=== PATIENT | female | born 1985 | race African-American/Black ===

== ENCOUNTER 2017-06-13 08:27 | Emergency (ER) | payer MEDICAID, SELFPAY | END 2017-06-13 10:07 | disposition home or self-care (01) | PROVIDERS: Emergency Provider Emergency Medicine; Family Provider Emergency Medicine; Visit Provider Emergency Medicine | DX: M54.41 Lumbago with sciatica, right side (principal); L60.0 Ingrowing nail; F17.210 Nicotine dependence, cigarettes, uncomplicated; I10 Essential (primary) hypertension | CPT/HCPCS: 72110; 81001; 81025; 87086; 99283 ==

== ENCOUNTER → 2018-08-23 14:37 | Outpatient (CLI) | payer MEDICAID, SELFPAY ==
[2018-08-23 15:05] LABS: Amphetamine/Metha Screen,Urine Negative ng/mL (<1000); Barbiturates Screen,Urine Negative ng/mL (<200); Benzodiazepines Screen,Urine Negative ng/mL (<200); Cannabinoid Screen,Urine Negative ng/mL (<50); Cocaine Screen,Urine Negative ng/mL (<300); Methadone Screen,Urine Negative ng/mL (<300); Opiate Screen,Urine Negative ng/mL (<300); Phencyclidine Screen,Urine Negative ng/mL (<25)
[2018-08-23 15:07] LABS: Alanine Aminotransferase 58 U/L (12-78); Albumin/Globulin Ratio 1.1 (1.1-1.8); Alkaline Phosphatase 93 U/L (46-116); Anion Gap 16.9 mEq/L (5-15); Aspartate Amino Transferase 21 U/L (15-37); Bilirubin,Total 0.3 mg/dL (0.2-1.0); Blood Urea Nitrogen 12 mg/dL (7-18); Calcium 9.3 mg/dL (8.5-10.1); Carbon Dioxide 23 mmol/L (21.0-32.0); Chloride 104 mmol/L (98-107); Chol/HDL Ratio 2.2 (1-3.5); Cholesterol 167 mg/dL (140-200); Estimated Glomerular Filt Rate 74 ml/min (>60); GFR (African American) 89 ML/MIN (>60); Globulin 3.5 gm/dl (1.3-3.2); Glucose 114 mg/dL (74-106); HDL Cholesterol 77 mg/dL (29-89); LDL Cholesterol 72 mg/dL (0-130); Potassium 3.9 mmoL/L (3.5-5.1); Sodium 140 mmol/L (136-145); T4 (Thyroxine) 9.7 ug/dl (4.7-13.3); Thyroid Stimulating Hormone 1.27 uIU/ml (0.358-3.740); Total Protein,Serum 7.5 gm/dL (6.4-8.2); Triglycerides 91 mg/dL (30-200); VLDL Cholesterol 18 mg/dL (0-40)
[2018-08-23 15:34] LABS: Basophils % 0.3 % (0.1-2.0); Eosinophils # 0.2 K/mm3 (0.0-0.4); Hemoglobin 12.8 g/dL (12.2-16.2); Lymphocytes # 2.6 K/mm3 (0.7-4.5); Lymphocytes % 28.2 % (10-50); Mean Corpuscular HGB Conc 31.9 g/dL (31.8-35.4); Mean Corpuscular Volume 87.7 fl (81-99); Mean Platelet Volume 10.7 fl (7.4-10.4); Monocytes # 0.5 K/mm3 (0.1-1.0); Monocytes % 5.5 % (1.7-9.3); Neutrophils % 63.9 % (37.0-80.0); Platelet Count 265 K/mm3 (142-424); Red Blood Count 4.56 M/mm3 (4.20-5.40); White Blood Count 9.4 K/mm3 (4.8-10.8)
[2018-08-26 13:25] LABS: Vitamin D 25 Hydroxy 24.9 ng/mL (30.0-100.0)
== END ==
PROVIDERS: Visit Provider Nurse Practitioner Family
DX: E66.9 Obesity, unspecified (principal)
CPT/HCPCS: 80053; 80061; 80305; 82652; 84436; 84443; 85025

== ENCOUNTER → 2020-01-13 15:15 | Outpatient (CLI) | payer OTHER, SELFPAY ==
[2020-01-14 14:27] LABS: Alanine Aminotransferase 36 U/L (12-78); Albumin Level 4.2 g/dl (3.5-5.0); Albumin/Globulin Ratio 1.4 (1.1-1.8); Alkaline Phosphatase 103 U/L (38-126); Anion Gap 10.7 mEq/L (5-15); Aspartate Amino Transferase 37 U/L (14-36); Bilirubin,Total 0.3 mg/dl (0.2-1.3); Blood Urea Nitrogen 17 mg/dl (7-17); Calcium 9.1 mg/dl (8.4-10.2); Carbon Dioxide 27 mmol/L (22.0-30.0); Chloride 105 mmol/L (98-107); Cholesterol 154 mg/dl (140-200); Estimated Glomerular Filt Rate 97 ml/min (>60); GFR (African American) 117 ML/MIN (>60); Globulin 3.1 g/dL (1.3-3.2); Glucose 100 mg/dl (74-100); HDL Cholesterol 78 mg/dl (40-60); Potassium 4.7 mmoL/L (3.5-5.1); Sodium 138 mmol/L (136-145); Total Protein,Serum 7.3 g/dl (6.3-8.2); Triglycerides 68 mg/dl (30-150); VLDL Cholesterol 14 mg/dL (0-40)
[2020-01-14 14:38] LABS: Direct LDL Cholesterol 65.37 mg/dL (100-129)
[2020-01-14 14:44] LABS: Free T4 (Free Thyroxine) 1.23 ng/dl (0.78-2.19)
[2020-01-14 14:45] LABS: 25-OH Vitamin D, Total 16.9 ng/mL (30-100)
[2020-01-14 14:59] LABS: Thyroid Stimulating Hormone 0.98 uIU/mL (0.465-4.68)
== END ==
PROVIDERS: Visit Provider Emergency Medicine
DX: R68.89 Other general symptoms and signs (principal); E03.9 Hypothyroidism, unspecified; Z13.21 Encounter for screening for nutritional disorder
CPT/HCPCS: 80053; 80061; 82306; 84439; 84443

== ENCOUNTER 2020-05-05 07:49 | Observation (INO) | payer OTHER, SELFPAY ==
[2020-05-05] VITALS (23 sets, daily range): BP systolic 91–149; BP diastolic 50–86; PULSE 57–85; RESP 12–20; TEMP 36.1–43; O2SAT 93–100; BMI 29.7
--- NOTE | 2020-05-05 08:00 | CT_ITS ---
PROCEDURE: CT ABDOMEN PELVIS W CON CLINICAL INDICATION: llq abdominal pain Left lower quadrant pain with diarrhea COMPARISON: No exams were available for comparison TECHNIQUE: IV Contrast: 75ML Isovue 370 Oral Contrast None Axial images obtained with sagittal and coronal reformats. All CT scans at the facility use one or more dose reduction, viz: automated exposure control, ma/kV adjustment per patient size (including targeted exams where dose is matched to indication, i.e. head), or iterative reconstruction technique. FINDINGS: LOWER THORAX: There is a 4 mm noncalcified nodule in the left lower lobe image number 1 incompletely imaged. ABDOMEN & PELVIS: There is a subtle area of slight decreased attenuation in the right hepatic lobe posteriorly measuring approximately 16 by 12 mm. This is indeterminate. The liver is otherwise unremarkable. The gallbladder, spleen, adrenal glands, kidneys, and pancreas have an unremarkable appearance. No evidence of appendicitis. No intestinal obstruction or free air. There is mild thickening of the descending and sigmoid colon possibly due to nondistention. There are bilateral tubal ligation clips. In the left adnexa there is a complex lesion measuring 4 x 2.7 cm. There is central area of decreased attenuation measuring 17 mm. This is felt represent the left ovary. The right ovary appears to be in the posterior adnexal area measuring approximately 4 x 2.4 cm. No significant free fluid. No acute bony findings. IMPRESSION: 1. Left adnexal abnormality which may represent a complex ovarian cyst with thickened wall. Torsion would be included in the differential diagnosis. Suggest pelvic ultrasound for further evaluation 2. Mild thickening of the descending and sigmoid colon which could be due to nondistention versus mild colitis. 3. Indeterminate hepatic lesion. Nonemergent CT or MRI with hemangioma protocol may provide further evaluation. Dictated by: Akira Fitch MD 05/05/2020 09:25 Akira Fitch MD in [place] 05/05/2020 09:25
[2020-05-05 08:06] LABS: Microscopic, Urine URINE MICROSCOPIC (MICROSCOPIC)
[2020-05-05 08:09] LABS: Appearance,Urine CLEAR (Clear); Bilirubin,Urine Negative (Negative); Blood, Urine Negative (Negative); Color,Urine YELLOW (Yellow); Glucose,Urine (UA) Negative (Negative); Ketones,Urine Negative (Negative); Leukocyte Esterase,Urine Negative (Negative); Nitrate,Urine Negative (Negative); Protein,Urine TRACE (Negative); Specific Gravity, Urine >= 1.030 (1.005-1.030); Urobilinogen,Urine 0.2 EU/dl (0.2)
[2020-05-05 08:13] LABS: Urine Pregnancy, HCG Qual. Negative (Negative)
[2020-05-05 08:16] LABS: RBC,Urine Occasional #/hpf (0-3)
--- NOTE | 2020-05-05 08:20 | HMH.EDGENADL ---
ED Disposition Clinical Impression: Pelvic pain, Left ovarian cyst Disposition: Admitted as Observation Condition on Discharge: Fair Instructions: DI for Acute Abdomen Referrals: Dawit Vasquez MD [Primary Care Provider] - - Critical Care Critical Care Time: No Attestation: On 05/05/20, the high probability of a clinically significant, sudden or life threatening deterioration of the following system(s) required my full and direct attention, intervention and personal management. The time I documented below is in addition to time spent performing reported procedures but includes the following listed in this critical care notation. Medical Decision Making - Medical Records Medical records reviewed: Yes: I reviewed the patient's medical records. - Cassius Inquiry Pt receiving controlled substance: Yes Cassius was queried for this patient: Yes Reference #:: [id number] Risks and benefits of using a controlled substance: were not discussed with pt by me Comment: 5 rxs for phentermine Vital Signs: 05/05/20 07:56 05/05/20 10:42 Temperature 98.5 F Temperature Source Oral Pulse Rate [Right Radial] 85 59 L Respiratory Rate 18 18 Blood Pressure [Right Arm] 138/65 91/62 L Blood Pressure Mean [Right Arm] 89 71 Blood Pressure Source [Right Arm] Automatic Cuff Blood Pressure Position [Right Arm] Sitting 02 Sat by Pulse Oximetry 97 100 Oxygen Delivery Method Room Air - Lab Data Lab results reviewed: Yes: I reviewed the patient's lab results. Lab Results 05/05/20 07:55: Urine Color Yellow, Urine Appearance Clear, Urine pH 6.0, Ur Specific [place] >= 1.030, Urine Protein Trace, Urine Glucose (UA) Negative, Urine Ketones Negative, Urine Blood Negative, Urine Nitrate Negative, Urine Bilirubin Negative, Urine Urobilinogen 0.2, Ur Leukocyte Esterase Negative, Urine RBC Occasional, Urine WBC 3-5, Ur Squamous Epith Cells 3-5 05/05/20 07:55: Urine HCG, Qual Negative 05/05/20 08:05: WBC 9.2, RBC 4.91, Hgb 13.8, Hct 43.1, MCV 87.7, MCH 28.0, MCHC 31.9, RDW 13.6, Plt Count 251, MPV 9.2, Neut % (Auto) 68.3, Lymph % (Auto) 24.8, Pine % (Auto) 5.4, Eos % (Auto) 1.0, Baso % (Auto) 0.6, Neut # (Auto) 6.3, Lymph # (Auto) 2.3, Pine # (Auto) 0.5, Eos # (Auto) 0.1, Baso # (Auto) 0.1 05/05/20 08:05: Sodium 140, Potassium 3.6, Chloride 104, Carbon Dioxide 26, Anion Gap 13.6, BUN 9, Creatinine 1.10 H, Estimated Creat Clear 100, Estimated GFR 58 L, Est GFR ( Amer) 70, Glucose 101 H, Calcium 9.5, Total Bilirubin 0.6, AST 24, ALT 22, Alkaline Phosphatase 108, Total Protein 8.2, Albumin 4.8, Globulin 3.4 H, Albumin/Globulin Ratio 1.4, Amylase 95, Lipase 344 H Result diagrams: 05/05/20 08:05 05/05/20 08:05 Orders (Tests/Meds): ED MEDICATIONS Discontinued Medications Generic Name Dose Route Start Last Admin Trade Name Freq PRN Reason Stop Dose Admin Hydromorphone HCl 1 mg 05/05/20 09:52 05/05/20 09:56 Hydromorphone 2mg/Ml Syringe IV 05/05/20 09:53 1 mg ONCE ONE Administration Sodium Chloride 1,000 mls @ 999 mls/hr 05/05/20 08:00 05/05/20 08:13 Sod Chlor 0.9% 1000ml Bag IV 05/05/20 09:00 999 mls/hr .Q1H1M JELENA Administration Iopamidol 75 ml 05/05/20 09:00 05/05/20 09:00 Iopamidol-370 (76%);100ml Bottle IV 05/05/20 09:01 75 ml ONCE ONE Administration Ketorolac Tromethamine 30 mg 05/05/20 08:00 05/05/20 08:12 Ketorolac 30mg/Ml Vial IV 05/05/20 08:01 30 mg ONCE ONE Administration Morphine Sulfate 4 mg 05/05/20 09:12 05/05/20 09:14 Morphine 4mg/Ml Syringe IV 05/05/20 09:13 4 mg ONCE ONE Administration Ondansetron HCl 4 mg 05/05/20 08:00 05/05/20 08:12 Ondansetron 4mg/2ml Vial IV 05/05/20 08:01 4 mg ONCE ONE Administration Sodium Chloride 10 ml 05/05/20 09:00 05/05/20 09:00 Sodium Chloride 0.9% 10ml Syr (Rad Only) IV 05/05/20 09:01 10 ml ONCE ONE Administration ORDERS Category Date Time Status US transvaginal Stat Exams 05/05/20 09:34 Ordered
[2020-05-05 08:29] LABS: Basophils # 0.1 K/mm3 (0-0.2); Basophils % 0.6 % (0.1-2.0); Eosinophils # 0.1 K/mm3 (0.0-0.4); Hematocrit 43.1 % (37.0-47.0); Hemoglobin 13.8 g/dL (12.2-16.2); Lymphocytes # 2.3 K/mm3 (0.7-4.5); Lymphocytes % 24.8 % (10-50); Mean Corpuscular HGB Conc 31.9 g/dL (31.8-35.4); Mean Corpuscular Volume 87.7 fl (81-99); Mean Platelet Volume 9.2 fl (7.4-10.4); Monocytes # 0.5 K/mm3 (0.1-1.0); Monocytes % 5.4 % (1.7-9.3); Neutrophils # 6.3 K/mm3 (1.8-7.8); Neutrophils % 68.3 % (37.0-80.0); Platelet Count 251 K/mm3 (142-424); Red Blood Count 4.91 M/mm3 (4.20-5.40); Red Cell Distribution Width 13.6 % (11.5-17.5); White Blood Count 9.2 K/mm3 (4.8-10.8)
[2020-05-05 08:33] LABS: Chloride 104 mmol/L (98-107); Sodium 140 mmol/L (136-145)
[2020-05-05 08:34] LABS: Potassium 3.6 mmoL/L (3.5-5.1)
[2020-05-05 08:36] LABS: Alanine Aminotransferase 22 U/L (12-78); Alkaline Phosphatase 108 U/L (38-126); Amylase 95 U/L (30-110); Anion Gap 13.6 mEq/L (5-15); Aspartate Amino Transferase 24 U/L (14-36); Bilirubin,Total 0.6 mg/dl (0.2-1.3); Blood Urea Nitrogen 9 mg/dl (7-17); Calcium 9.5 mg/dl (8.4-10.2); Carbon Dioxide 26 mmol/L (22.0-30.0); Creatinine Clearance Estimated 100 mL/min (50-200); Estimated Glomerular Filt Rate 58 ml/min (>60); GFR (African American) 70 ML/MIN (>60); Glucose 101 mg/dl (74-100); Lipase 344 U/L (23-300)
[2020-05-05 08:37] LABS: Albumin Level 4.8 g/dl (3.5-5.0); Albumin/Globulin Ratio 1.4 (1.1-1.8); Globulin 3.4 g/dL (1.3-3.2); Total Protein,Serum 8.2 g/dl (6.3-8.2)
--- NOTE | 2020-05-05 09:14 | PC.NURSE ---
pt continues to complain of pain despite early medication interventions. dr amezcua notified. new orders received. see aug.
--- NOTE | 2020-05-05 09:34 | US_ITS ---
PROCEDURE: US TRANSVAGINAL CLINICAL INDICATION: L ovarian cyst w/pain, r/o torsion COMPARISON: US TVP US TRANSVAGINAL PREG from 01/30/2014 FINDINGS: UTERUS: 11cm x 6cmx 5cm with a combined endometrial thickness of 11.5mm LEFT OVARY: [id number] with a volume of 35.5ml. RIGHT OVARY: [id number] with a volume of 14.6ml. There is an 18 x 11 mm nabothian cyst present. The endometrium is thickened at 13 mm. There are 2 areas of decreased echogenicity in the uterine fundus at 15 and 9 mm the and may be due to fibroids. Multiple small follicles are present involving the right ovary. There is a 3 cm left ovarian cyst. There are small follicles on the left. Blood flow is present to both ovaries. No cul-de-sac fluid apparent. IMPRESSION: Enlarged uterus with endometrial thickness upper limits of normal. Small fibroids are present. There is a 3 cm left ovarian cyst. There is bilateral ovarian blood flow with no evidence of torsion and no cul-de-sac fluid. Dictated by: Akira Fitch MD 05/05/2020 12:20 Akira Fitch MD in [place] 05/05/2020 12:20
--- NOTE | 2020-05-05 09:37 | PC.NURSE ---
radiology notified of need for ultrasound due to ct findings.
--- NOTE | 2020-05-05 09:40 | PC.NURSE ---
pt undressed placed in gown for ultrasound readiness.
--- NOTE | 2020-05-05 09:57 | PC.NURSE ---
pt calling family member
--- NOTE | 2020-05-05 10:27 | PC.NURSE ---
ultrasound complete. results interpreted to dr amezcua per installation tech. awaiting disposition.
--- NOTE | 2020-05-05 10:37 | PC.NURSE ---
Dr. Miller consulting with Dr Schneider concerning patient and ultrasound/CT findings.
--- NOTE | 2020-05-05 10:39 | PC.NURSE ---
Dr Miller spoke with Gerber Schneider
--- NOTE | 2020-05-05 10:52 | PC.NURSE ---
notified care management of admission, spoke with
[2020-05-05 11:30] LABS: Coronavirus 19 IgG Antibody Negative (Negative); Coronavirus 19 IgM Antibody Negative (Negative)
--- NOTE | 2020-05-05 11:40 | PC.NURSE ---
REPORT RECEIVED FROM Earline BARBOSA RN
--- NOTE | 2020-05-05 12:14 | P.CONPHA_ITS ---
[facility] Pharmacy VTE Monitoring - Patient Demographics Admission date: 05/05/20 Report Date: 05/05/20 Time: 12:15 Allergies/Adverse Reactions: Patient Allergies No Known Allergies Allergy (Verified 05/05/20 07:59) Height: 1.7 m Weight: 86.183 kg Patient Problems: Current Active Problems Pelvic pain (Acute) Left ovarian cyst (Acute) - VTE Risk Labs: VTE Related Lab Results Hgb 13.8 g/dL (12.2-16.2) 05/05/20 08:05 Hct 43.1 % (37.0-47.0) 05/05/20 08:05 Plt Count 251 K/mm3 (142-424) 05/05/20 08:05 BUN 9 mg/dl (7-17) 05/05/20 08:05 Creatinine 1.10 mg/dl (0.52-1.04) H 05/05/20 08:05 Estimated Creat Clear 100 mL/min (50-200) 05/05/20 08:05 - Prophylaxis VTE Prophylaxis Ordered?: Yes Types of VTE Prophylaxis: TEDS Knee High Location of Applied Device: Bilateral Lower Extremeties
--- NOTE | 2020-05-05 13:52 | PC.NURSE ---
Dr. Schneider at bedside.
--- NOTE | 2020-05-05 15:46 | PC.NURSE ---
REPORT GIVEN TO Brenda ATKINSON RN PT TO PRE-OP AT THIS TIME
--- NOTE | 2020-05-05 16:02 | HMH.HP ---
*Admission Date: 05/05/20 *Chief complaint: Severe left lower quadrant pain. *History of present illness: She complains of severe left lower quadrant pain that started about 3 or 4 days ago. Is gotten progressively worse and she came into the ER today. She had CT scan as well as ultrasound. The CT scan suggested a 4 cm complex mass in the left ovary. It also showed some inflammation of the descending and sigmoid colon. She had a transvaginal ultrasound that showed good flow to both ovaries. She is being admitted for pain control. [facility] History I have reviewed the patient's past medical history: Yes Medical History: Reports:: Heart Murmur Denies:: Cancer, Diabetes Mellitus Type 1, Diabetes Mellitus Type 2, Internal Pacemaker, MRSA *Have you ever received a pneumonia vaccine?: No *Have you received a flu vaccine this season?: Yes Other Surgeries: Yes: (X4), Tubal Ligation. No: Pacemaker Amputation: No Fractures: No - *Social History Last grade of school completed: High school graduate Smoking Status: Current every day smoker Tobacco Type: cigarettes # Packs/Day (cigarettes): 1 Alcohol Intake: never Substance Use Type: denies use *Occupational Status:: employed *Travel in the last 8 weeks: None Family Hx:: No significant family history Review of Systems - Review of Systems Review of systems:: pertinent systems reviewed and negative unless documented below Meds Home Medications Medication Instructions Recorded Confirmed Type No Known Home Medications 05/05/20 05/05/20 History Allergies Allergy/AdvReac Type Severity Reaction Status Date / Time No Known Allergies Allergy Verified 05/05/20 07:59 Exam Vital signs and Labs for Last 24 Hours: Temp Pulse Resp BP Pulse Ox 98.4 F 66 18 97/50 L 100 05/05/20 12:00 05/05/20 12:00 05/05/20 12:00 05/05/20 12:00 05/05/20 12:20 Laboratory Results - last 24 hr 05/05/20 07:55: Urine Color Yellow, Urine Appearance Clear, Urine pH 6.0, Ur Specific [place] >= 1.030, Urine Protein Trace, Urine Glucose (UA) Negative, Urine Ketones Negative, Urine Blood Negative, Urine Nitrate Negative, Urine Bilirubin Negative, Urine Urobilinogen 0.2, Ur Leukocyte Esterase Negative, Urine RBC Occasional, Urine WBC 3-5, Ur Squamous Epith Cells 3-5 05/05/20 07:55: Urine HCG, Qual Negative 05/05/20 08:05: WBC 9.2, RBC 4.91, Hgb 13.8, Hct 43.1, MCV 87.7, MCH 28.0, MCHC 31.9, RDW 13.6, Plt Count 251, MPV 9.2, Neut % (Auto) 68.3, Lymph % (Auto) 24.8, [place] % (Auto) 5.4, Eos % (Auto) 1.0, Baso % (Auto) 0.6, Neut # (Auto) 6.3, Lymph # (Auto) 2.3, [place] # (Auto) 0.5, Eos # (Auto) 0.1, Baso # (Auto) 0.1 05/05/20 08:05: Sodium 140, Potassium 3.6, Chloride 104, Carbon Dioxide 26, Anion Gap 13.6, BUN 9, Creatinine 1.10 H, Estimated Creat Clear 100, Estimated GFR 58 L, Est GFR ( Amer) 70, Glucose 101 H, Calcium 9.5, Total Bilirubin 0.6, AST 24, ALT 22, Alkaline Phosphatase 108, Total Protein 8.2, Albumin 4.8, Globulin 3.4 H, Albumin/Globulin Ratio 1.4, Amylase 95, Lipase 344 H 05/05/20 08:05: SARS-CoV-2 IgG Ab (Rapid) Negative, SARS-CoV-2 IgM Ab (Rapid) Negative I & O for Last 24 hours: Intake & Output 05/03/20 05/04/20 05/05/20 05/06/20 11:59 11:59 11:59 11:59 Weight 190 lb - Constitutional no acute distress - *Routine HEENT Exam Head: Present: normocephalic Eye: Present: EOMI, PERRL ENT: Present: mucous membranes moist - *Routine Neck Exam Present: supple, full ROM - *Routine Respiratory Exam Absent: accessory muscle use (good air entry bilaterally), wheezes, crackles - *Routine Cardiovascular Exam Present: RRR. Absent: murmur - *Routine Abdominal Exam Present: soft, normoactive bowel sounds. Absent: tenderness, rebound, guarding, mass - *Routine Rectal Exam Patient deferred: visual exam, digital exam - *Routine Exam Patient deferred: external exam, groin exam, perineal exam - *Routine Extremities Exam Present: full ROM. Absent: cyanos
--- NOTE | 2020-05-05 17:17 | HMH.ANESCL ---
[facility] Anesthesia Checklist - Structural Data Admitted From: Inpatient Planned Operative Procedure/s: dx ;lap Consent for Planned Operative Procedure(s) Verified: Yes - Airway Assessment C-Spine Mobility Assessed: Yes TMJ Mobility Assessed: Yes Dentition: Good Dentition - Neurological Assessment Level of Consciousness: Awake - Anesthesia Plan Anesthesia Risk discussed: Yes Anesthesia Plan: Verified ASA Class: II Anesthesia Type: General [facility] History I have reviewed the patient's past medical history: Yes Medical History: Reports:: Heart Murmur Denies:: Cancer, Diabetes Mellitus Type 1, Diabetes Mellitus Type 2, Internal Pacemaker, MRSA *Have you ever received a pneumonia vaccine?: No *Have you received a flu vaccine this season?: Yes Anesthesia experience/problems:: none Other Surgeries: Yes: (X4), Tubal Ligation. No: Pacemaker Amputation: No Fractures: No - *Social History Last grade of school completed: High school graduate Smoking Status: Current every day smoker Tobacco Type: cigarettes # Packs/Day (cigarettes): 1 Alcohol Intake: never Substance Use Type: denies use *Occupational Status:: employed *Travel in the last 8 weeks: None Family Hx:: No significant family history
--- NOTE | 2020-05-05 18:11 | HMH.OPNOTE ---
Date of procedure: 05/05/20 Pre-op Diagnosis:: Severe left lower quadrant pain, left ovarian cyst Post-op Diagnosis:: Severe left lower quadrant pain, left ovarian cyst, extensive adhesions of the uterus to the anterior abdominal wall as well as adhesions of the left ovary to the left tube Procedure performed:: Diagnostic laparoscopy, lysis of adhesions, laparoscopic left salpingectomy. Surgeon:: Gurmeet Schneider MD RELATIONSHIP MANAGER:: Chinmay Lazaro Anesthesia: GETA Estimated blood loss (mL): 100 Clinical Note:: She is a 34-year-old lady who complains of severe lower abdominal pain. She has had this pain going on for the last 3 to 4 days. It got severe today and she ended up in the ER. The pain was significant enough that she required hydromorphone for pain relief. After having discussed the risks and benefits she elected to have a diagnostic laparoscopy. Operative findings:: She had a extensive adhesions of the uterus to the anterior abdominal wall especially on the left side and the left round ligament. The left tube was completely adherent along the left pelvic adnexa and was somewhat twisted upon itself and edematous appearing. He had good blood supply. She had a previous tubal ligation on that side with Filshie clips. The right side appeared normal. The right ovary appeared normal. Operative note:: She was taken the operating room where general anesthesia was found be adequate. She was prepped and draped in normal sterile fashion in the semilithotomy position. A weighted speculum is placed in the vagina and the anterior lip of the cervix was grasped with a tenaculum. A Yasmin uterine manipulator was placed within the uterine cavity and the balloon insufflated. I then changed gloves and injected 10 cc of 0.5% ropivacaine around the umbilicus. I made a small incision in the umbilicus and inserted a Veress needle into the abdominal cavity. The abdominal cavity was then insufflated with carbon oxide gas to a pressure of 20 mmHg. I then inserted a 5 mm trocar under direct vision. I then injected through and through the pubic hairline, made a small incision here and inserted a 5 mm trocar under direct vision. I identified the inferior gastric arteries on the left side, went lateral to these and injected through and through. Once again I inserted a 5 mm trocar here under direct vision. The pelvis was then inspected and the findings were as previous dictated. I elected to remove the patient's left tube because the ovary was pulled up upon itself and the tube was adherent along the top of the ovary on the left side. Using harmonic scalpel I cut through the tube at the cornua of the uterus. I then grasped the distal end of the tube and was able to free it up using harmonic scalpel. I then removed the tube in its entirely by cutting along the mesosalpinx. There was a small area of bleeding and I placed hemoclips on the left side. I then rinsed the pelvis well. I attempted to free up the uterus from the anterior abdominal wall but the adhesions were extremely thick so I elected to just stop here. Along the left side remove the tube I put sprayed the area with Vanita after having rinsed the pelvis well. I then placed a large piece of Surgicel in this area. I then placed a 12 mm trocar through the umbilicus. I retrieved the tube through the umbilicus. Once again hemostasis was assured. The secondary trochars were then removed under direct vision. The sites were hemostatic. The gas was of the abdomen and hemostasis was found to be adequate. The gas was then reinsufflated once again and hemostasis was assured. I then let the gas out of the abdomen and remove the camera and trocar together. No bowel was seen to follow. The umbilical trocar site was then closed first deeply with a [id number] 2-0 Vicryl suture followed by subcuticular 4-0 Monocryl. The 5 mm trocar sites were then closed with interrupted subcuticular 4-0 Monocryl. Sterile dressings w
--- NOTE | 2020-05-05 18:24 | P.PN_ITS ---
[facility] Anesthesia Record Part I Intake, IV Amount: 1,500 Estimated blood loss (mL): 25 Urine output (mL): 25 Blood Pressure: 149/80 SaO2: 93 Pulse Rate: 77 Respiratory Rate: 12 Temperature: 97.3 F Patient is:: Awake, Stable Stable to PACU at:: 18:20
--- NOTE | 2020-05-05 18:41 | SUR.PHASEI ---
1820: JEZ DHALIWAL ADMINISTERED PAIN MEDICATION TO PATIENT THEY BROUGHT HER IN THE PACU. SCANT AMT OF BLOOD NOTED TO BOTTOM ABDOMINAL DRESSING - DRESSING MARKED.
--- NOTE | 2020-05-05 18:45 | SUR.PHASEI ---
1836: PATIENT REPORTS PAIN 04/03. DILAUDID 1MG IVP GIVEN PER AUG. POSITIONED PATIENT TO ASSIST WITH COMFORT.
--- NOTE | 2020-05-05 19:00 | PC.NURSE ---
PT BROUGHT TO OB UNIT PER BED AT THIS TIME
--- NOTE | 2020-05-05 19:42 | SUR.PHASEI ---
1855: PATIENT TRANSPORTED TO OB PER MYSELF AND Luna MUNIZ RN. PATIENT REPORTING PAIN 12/02. PAIN MEDICATION HAS STARTED TO EASE PAIN. PATIENT LYING IN BED, BP MONITOR HOOKED UP. INFORMED FAMILY PATIENT WAS BACK IN ROOM AND STAFF WOULD BE OUT TO GET THEM ONCE PATIENT WAS SETTLED. ADDITIONAL REPORT GIVEN TO Katherine UGALDE RN.
--- NOTE | 2020-05-05 19:45 | PC.NURSE ---
PT AWOKE AT THIS TIME AND ASSESSED. BILATERAL LUNG SOUNDS CLEAR. BOWEL SOUND HYPOACTIVE X4 QUADS. PT C/O LLQ PAIN THAT IS SHARP AND STABBING. RATES THIS PAIN 8/10 ON VERBAL SCALE. 3 LAP SITES NOTED WITH DRESSING INTACT WITH SCANT ABOUT OF RUBRA DRAINAGE. SCUDS ON BLE. WILL CONTINUE TO OBSERVE.
--- NOTE | 2020-05-05 20:00 | PC.NURSE ---
PT AMBULATED TO BR AND BACK TO BED AT THIS TIME WITH STAND BY ASSIST. PT STATES THAT SHE WAS NOT ABLE TO VOID AT THIS TIME. STATES THAT THEIR WAS A MODERATE AMOUNT OF BLOOD IN TOILET AND A FEW SMALL CLOTS. PT FLUSHED BEFORE NURSE COULD EXAMINE.
[2020-05-05 20:06] LABS: Barbiturates Screen,Urine Negative ng/ml (<200)
[2020-05-05 20:07] LABS: Benzodiazepines Screen,Urine Positive ng/ml (<200); Cannabinoid Screen,Urine Positive ng/ml (<50)
[2020-05-05 20:09] LABS: Methadone Screen,Urine Negative ng/ml (<300); Opiate Screen,Urine Negative ng/ml (<300)
[2020-05-05 20:10] LABS: Phencyclidine Screen,Urine Negative ng/ml (<25)
[2020-05-05 20:16] LABS: Amphetamine/Metha Screen,Urine Negative ng/ml (<1000)
[2020-05-05 20:19] LABS: Cocaine Screen,Urine Positive ng/ml (<300)
--- NOTE | 2020-05-05 20:33 | PC.NURSE ---
DR. NGUYEN CALLED TO CHECK ON PT AT THIS TIME. REPORT GIVEN. NO NEW ORDERS AT THIS TIME.
--- NOTE | 2020-05-05 22:00 | PC.NURSE ---
PT AMBULATED TO BR AND BACK VOIDED 150 ML OF BLOOD TINGED URINE AT THIS TIME. PT TOLERATED AMBULATION WELL.
--- NOTE | 2020-05-05 23:43 | PC.NURSE ---
PT MEDICATED PER EMAR AT THIS TIME R/T ABD PAIN 8/10 ON VERBAL SCALE. WILL CONTINUE TO OBSERVE.
[2020-05-06] VITALS: BP 116/65; PULSE 74; RESP 18; TEMP 36.7; O2SAT 99
[2020-05-06 01:00] VITALS: BP 107/60; PULSE 64; RESP 16; TEMP 36.6; O2SAT 99
[2020-05-06 02:00] VITALS: BP 101/50; PULSE 57; RESP 16; TEMP 36.6; O2SAT 100
[2020-05-06 04:00] VITALS: BP 112/59; PULSE 56; RESP 18; TEMP 36.7; O2SAT 100
--- NOTE | 2020-05-06 04:20 | PC.NURSE ---
PT REASSESSED AT THIS TIME. BOWEL SOUNDS HYPOACTIVE. PT DENIES PASSING GAS. BILATERAL LUNG SOUND CLEAR. NO EDEMA. RATES PAIN 7/10 ON VERBAL SCALE AND STATES THAT IT IS STILL THE LLQ PAIN LIKE BEFORE SHE HAD HER SURGERY. LAP SITE DRESSINGS INTACT WITH SOME SEROSANGEIOUS DRAINAGE NOTED. PT VOIDED 300 ML AT THIS TIME. SMALL AMOUNT OF VAGINAL BLEEDING NOTED. PT EATING JELLO AND POPSICLE AT THIS TIME. WILL CONTINUE TO OBSERVE
[2020-05-06 08:03] VITALS: BP 117/59; PULSE 54; RESP 16; TEMP 36.4; O2SAT 97
--- NOTE | 2020-05-06 08:15 | HMH.DCSUM ---
General - General Admission date:: 05/05/20 Discharge date: 05/06/20 HPI HPI: She complains of severe left lower quadrant pain that started about 3 or 4 days ago. Is gotten progressively worse and she came into the ER today. She had CT scan as well as ultrasound. The CT scan suggested a 4 cm complex mass in the left ovary. It also showed some inflammation of the descending and sigmoid colon. She had a transvaginal ultrasound that showed good flow to both ovaries. She is being admitted for pain control. Hospital Course Hospital Course: On April 04, 2020 she underwent a diagnostic laparoscopy with left salpingectomy. We also did some lysis of adhesions. She had adhesions from the uterus to the anterior abdominal wall and I left these alone since they have been there likely since her 5 years ago. The tube itself was twisted and enclosed and adhesions. The left ovary appeared normal. There was no other obvious cause for her left lower quadrant pain. She will be discharged home this morning to follow-up with me in 2 weeks time. She will continue with her home medications. We will give her a prescription for hydromorphone 2 mg p.o. to take every 4 hours as needed for pain. I have given her 20 tablets. She will also take a prescription for Toradol. She was given the usual instructions with respect to limiting her activity, driving and sexual activity. Her condition on discharge is stable and improved. Objective Vital signs: Temp Pulse Resp BP Pulse Ox 97.6 F 54 L 16 117/59 L 97 05/06/20 08:03 05/06/20 08:03 05/06/20 08:03 05/06/20 08:03 05/06/20 08:03 no acute distress - *Routine HEENT Exam Head: Present: normocephalic Eye: Present: EOMI, PERRL ENT: Present: mucous membranes moist Results Labs on day of discharge: Labs from last 24 hours 05/05/20 05/05/20 05/05/20 08:05 08:05 08:05 WBC 9.2 RBC 4.91 Hgb 13.8 Hct 43.1 MCV 87.7 MCH 28.0 MCHC 31.9 RDW 13.6 Plt Count 251 MPV 9.2 Neut % (Auto) 68.3 Lymph % (Auto) 24.8 [place] % (Auto) 5.4 Eos % (Auto) 1.0 Baso % (Auto) 0.6 Neut # (Auto) 6.3 Lymph # (Auto) 2.3 [place] # (Auto) 0.5 Eos # (Auto) 0.1 Baso # (Auto) 0.1 Sodium 140 Potassium 3.6 Chloride 104 Carbon Dioxide 26 Anion Gap 13.6 BUN 9 Creatinine 1.10 H Estimated Creat Clear 100 Estimated GFR 58 L Est GFR ( Amer) 70 Glucose 101 H Calcium 9.5 Total Bilirubin 0.6 AST 24 ALT 22 Alkaline Phosphatase 108 Total Protein 8.2 Albumin 4.8 Globulin 3.4 H Albumin/Globulin Ratio 1.4 Amylase 95 Lipase 344 H Urine RBC Urine WBC Ur Squamous Epith Cells Urine Opiates Screen Urine Methadone Screen Ur Barbituates Screen Ur Phencyclidine Scrn Ur Amphetamines Screen U Benzodiazepines Scrn Urine Cocaine Screen U Marijuana (THC) Screen SARS-CoV-2 IgG Ab (Rapid) Negative SARS-CoV-2 IgM Ab (Rapid) Negative 05/05/20 05/05/20 07:55 07:55 WBC RBC Hgb Hct MCV MCH MCHC RDW Plt Count MPV Neut % (Auto) Lymph % (Auto) [place] % (Auto) Eos % (Auto) Baso % (Auto) Neut # (Auto) Lymph # (Auto) [place] # (Auto) Eos # (Auto) Baso # (Auto) Sodium Potassium Chloride Carbon Dioxide Anion Gap BUN Creatinine Estimated Creat Clear Estimated GFR Est GFR ( Amer) Glucose Calcium Total Bilirubin AST ALT Alkaline Phosphatase Total Protein Albumin Globulin Albumin/Globulin Ratio Amylase Lipase Urine RBC Occasional Urine WBC 3-5 Ur Squamous Epith Cells 3-5 Urine Opiates Screen Negative Urine Methadone Screen Negative Ur Barbituates Screen Negative Ur Phencyclidine Scrn Negative Ur Amphetamines Screen Negative U Benzodiazepines Scrn Positive H Urine Cocaine Screen Positive H U Marijuana
[2020-05-06 08:29] LABS: Basophils % 0.1 % (0.1-2.0); Eosinophils % 0.1 % (0.1-12.0); Hematocrit 35.8 % (37.0-47.0); Lymphocytes # 1.4 K/mm3 (0.7-4.5); Mean Corpuscular HGB Conc 30.7 g/dL (31.8-35.4); Mean Corpuscular Hemoglobin 27.8 pg (27.0-31.2); Mean Corpuscular Volume 90.5 fl (81-99); Mean Platelet Volume 9.7 fl (7.4-10.4); Monocytes # 0.8 K/mm3 (0.1-1.0); Monocytes % 5.6 % (1.7-9.3); Neutrophils # 12.2 K/mm3 (1.8-7.8); Neutrophils % 84.2 % (37.0-80.0); Platelet Count 193 K/mm3 (142-424); Red Blood Count 3.95 M/mm3 (4.20-5.40); Red Cell Distribution Width 13.8 % (11.5-17.5); White Blood Count 14.4 K/mm3 (4.8-10.8)
--- NOTE | 2020-05-06 09:22 | PC.NURSE ---
[id number] Discharge education provided to pt, questions encouraged and answered. Pt reports that it will be a few hours before her ride for discharge can get her. Will continue care until her ride is able to get here.
[2020-05-06 12:05] VITALS: BP 112/55; PULSE 58; RESP 16; TEMP 36.8; O2SAT 98
--- NOTE | 2020-05-07 09:17 | HMH.ANESII ---
[facility] Anesthesia Record Part II Discharge Time: 18:50 Destination: floor PACU nurse assessment reviewed?: Yes Patient Condition:: Good Anesthesia Complications:: None Swallowing reflex intact?: Yes Cyanosis?: No Blood Pressure: 118/64 Pulse Rate: 60 Temperature: 98.4 F Mental Status: Alert & Oriented Pain level:: 5 Nausea and/or vomitting:: None Intake, IV Amount: 2,000
[2020-05-07 09:18] VITALS: BP 118/64; PULSE 60; TEMP 36.9
== END 2020-05-06 12:45 | disposition home or self-care (01) ==
LOC: ER 10:53 → OB 11:29
PROVIDERS: Admitting Provider Nurse Practitioner Obstetrics & Gynecology; Emergency Provider Emergency Medicine; PCP Emergency Medicine; Visit Provider Nurse Practitioner Obstetrics & Gynecology
PROC: (CPT 49320; principal; 2020-05-05 16:15)
DX: N83.202 Unspecified ovarian cyst, left side (principal); N73.6 Female pelvic peritoneal adhesions (postinfective)
CPT/HCPCS: 58661; 58660; 36415; 74177; 76830; 80053; 80305; 81001; 81025; 82150; 83690; 85025; 86328; 88305; 96365; 96375; 99284; G0378; J2405; J2710; Q9967

== ENCOUNTER → 2020-11-16 13:41 | Outpatient (CLI) | payer OTHER, SELFPAY ==
[2020-11-16 13:58] LABS: Barbiturates Screen,Urine Negative ng/ml (<200)
[2020-11-16 13:59] LABS: Benzodiazepines Screen,Urine Positive ng/ml (<200)
[2020-11-16 14:00] LABS: Cocaine Screen,Urine Positive ng/ml (<300)
[2020-11-16 14:01] LABS: Cannabinoid Screen,Urine Positive ng/ml (<50); Methadone Screen,Urine Negative ng/ml (<300)
[2020-11-16 14:02] LABS: Opiate Screen,Urine Negative ng/ml (<300)
[2020-11-16 14:03] LABS: Phencyclidine Screen,Urine Negative ng/ml (<25)
[2020-11-16 14:04] LABS: Amphetamine/Metha Screen,Urine Positive ng/ml (<1000)
[2020-11-16 14:11] LABS: Free T4 (Free Thyroxine) 2.26 ng/dl (0.78-2.19)
[2020-11-16 14:26] LABS: Thyroid Stimulating Hormone 1.09 uIU/mL (0.465-4.68)
== END ==
PROVIDERS: Visit Provider Emergency Medicine
DX: E66.9 Obesity, unspecified (principal); Z79.899 Other long term (current) drug therapy; Z68.32 Body mass index [BMI] 32.0-32.9, adult
CPT/HCPCS: 80305; 84439; 84443

== ENCOUNTER 2021-11-05 17:32 | Emergency (ER) | payer OTHER, SELFPAY ==
[2021-11-05 17:35] VITALS: BP 125/62; PULSE 62; RESP 18; TEMP 36.9; O2SAT 97; BMI 29.0
--- NOTE | 2021-11-05 18:07 | HMH.EDUTC ---
[facility] [place] Clinical Impression: Influenza A Disposition: Home, Self-Care Condition on Discharge: Good Instructions: Influenza, DI for Influenza -- Adult Additional Instructions: Drink plenty of fluids. Take tylenol or ibuprofen for pain or fever. Take the medications as directed. Follow up with your regular doctor. GO TO THE ER FOR ANY WORSENING SYMPTOMS To Whom It May Concern: Mrs. Mcconnell needs to be excused from work on 11/03 and 11/04, in addition to the days on her work excuse. She has influenza and she is contageous, so she should not be around people on these days. Prescriptions: Ondansetron [Zofran 4mg ODT] 4 mg PO Q8HP PRN #20 tab PRN Reason: Nausea Transmission Status: Received by [facility] # Benzonatate [Benzonatate 100mg cap] 100 mg PO TIDP PRN #30 cap PRN Reason: Cough Transmission Status: Received by [facility] # methylPREDNISolone [Medrol] 4 mg PO DIRECTED 6 Days #21 packet Transmission Status: Received by [facility] # Oseltamivir Phosphate [Tamiflu 75mg Capsule] 75 mg PO BID #10 cap Transmission Status: Received by [facility] # Azithromycin [Z-Kg 250mg Tab*] 250 mg PO UD DOSE PK #6 tab Transmission Status: Received by [facility] # Referrals: Dawit Vasquez MD [Primary Care Provider] - Forms: Work/School Release Time of Disposition: 18:34 Medical Decision Making - Medical Records Medical records reviewed: No: I reviewed the patient's medical records. - Cassius Inquiry Pt receiving controlled substance: No Vital Signs: 11/05/21 17:35 11/05/21 18:08 Temperature 98.5 F 98.5 F Temperature Source Oral Pulse Rate 62 Pulse Rate [Right Brachial] 62 Respiratory Rate 18 18 Blood Pressure 125/62 Blood Pressure [Right Arm] 125/62 Blood Pressure Mean [Right Arm] 83 Blood Pressure Source [Right Arm] Automatic Cuff Blood Pressure Position [Right Arm] Sitting 02 Sat by Pulse Oximetry 97 Oxygen Delivery Method Room Air - Lab Data Lab results reviewed: Yes: I reviewed the patient's lab results. Lab Results 11/05/21 18:15: Influenza Type A Ag Positive A, Influenza Type B Ag Negative [facility] [place]PI - General Stated complaint: cough, nasal abhi Time Seen by Provider: 11/05/21 18:08 Mode of Arrival: Ambulatory Source of Information: Patient Limitations: No Limitations Description of Symptoms (Recalled from Triage Doc. by RN): PATIENT C/O COUGH WITH YELLOW SPUTUM, SINUS PRESSURE AND CHEST CONGESTION X 1 WEEK HEENT Symptoms (Recalled from RN notes): Yes Resp Symptoms (Recalled from RN notes): Yes Skin Symptoms (Recalled from RN notes): No MS Symptoms (Recalled from RN notes): No Functional Status (Recalled from RN notes): WNL - History of Present Illness Provider Complaint: She has had fever, chills, n/v, sinus and chest congestion and a nonproductive cough for the past 2 days. - Related Data Previous Rx's Medication Instructions Recorded phentermine 37.5 mg tablet 37.5 mg PO DAILY #30 tab 11/02/21 Azithromycin [Z-Kg 250mg Tab*] 250 mg PO UD DOSE PK #6 tab 11/05/21 Benzonatate [Benzonatate 100mg 100 mg PO TIDP PRN #30 cap 11/05/21 cap] Ondansetron [Zofran 4mg ODT] 4 mg PO Q8HP PRN #20 tab 11/05/21 Oseltamivir Phosphate [Tamiflu 75 mg PO BID #10 cap 11/05/21 75mg Capsule] methylPREDNISolone [Medrol] 4 mg PO DIRECTED 6 Days #21 11/05/21 packet Allergies Allergy/AdvReac Type Severity Reaction Status Date / Time No Known Allergies Allergy Verified 11/02/21 09:43 - Worker's Comp Is this a Worker's Comp case?: No [facility] History - Hepatitis A Screen Attestation statement:: This patient has been screened for Hepatitis A risk factors. I have reviewed the patient's past medical history: Yes Medical History: Reports:: Anxiety, Heart Murmur Denies:: Cancer, Diabetes Mellitus Type 1, Diabetes Mellitus Type 2, Internal Pa
[2021-11-05 18:08] VITALS: BP 125/62; PULSE 62; RESP 18; TEMP 36.9; O2SAT 97
[2021-11-05 18:24] LABS: UTC Influenza A Antigen Positive (Negative)
[2021-11-05 18:25] LABS: UTC Influenza B Antigen Negative (Negative)
== END 2021-11-05 18:40 | disposition home or self-care (01) ==
PROVIDERS: Emergency Provider Nurse Practitioner Family; PCP Emergency Medicine
DX: J10.1 Influenza due to other identified influenza virus with other respiratory manifestations (principal); F41.9 Anxiety disorder, unspecified
CPT/HCPCS: 87804; 99212; G0463

== ENCOUNTER 2022-01-31 14:40 | Emergency (ER) | payer OTHER, SELFPAY ==
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
[2022-01-31 15:05] VITALS: BP 156/89; PULSE 82; RESP 16; TEMP 36.7; O2SAT 96; BMI 30.7
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
[2022-01-31 15:49] VITALS: BP 156/89; PULSE 82; RESP 16; TEMP 36.7
== END 2022-01-31 15:52 | disposition home or self-care (01) ==
PROVIDERS: Emergency Provider Nurse Practitioner Family; PCP Emergency Medicine
DX: S20.02XA Contusion of left breast, initial encounter (principal); S20.212A Contusion of left front wall of thorax, initial encounter; Y04.2XXA Assault by strike against or bumped into by another person, initial encounter; Y92.129 Unspecified place in nursing home as the place of occurrence of the external cause; Z79.899 Other long term (current) drug therapy; R01.1 Cardiac murmur, unspecified; F41.9 Anxiety disorder, unspecified; Z72.0 Tobacco use
CPT/HCPCS: 71046; 99283

== ENCOUNTER → 2022-11-30 13:10 | Outpatient (CLI) | payer OTHER, SELFPAY ==
[2022-11-30 13:21] LABS: Basophils # 0.1 K/mm3 (0-0.2); Basophils % 0.4 % (0.1-2.0); Eosinophils # 0.2 K/mm3 (0.0-0.4); Eosinophils % 1.6 % (0.1-12.0); Hematocrit 40.9 % (37.0-47.0); Hemoglobin 13.1 g/dL (12.2-16.2); Lymphocytes # 3.2 K/mm3 (0.7-4.5); Lymphocytes % 29.5 % (10-50); Mean Corpuscular Hemoglobin 28.2 pg (27.0-31.2); Mean Platelet Volume 10.2 fl (7.4-10.4); Monocytes # 0.5 K/mm3 (0.1-1.0); Monocytes % 4.8 % (1.7-9.3); Neutrophils # 6.9 K/mm3 (1.8-7.8); Neutrophils % 63.7 % (37.0-80.0); Platelet Count 263 K/mm3 (142-424); Red Blood Count 4.64 M/mm3 (4.20-5.40); Red Cell Distribution Width 14.4 % (11.5-17.5); White Blood Count 10.8 K/mm3 (4.8-10.8)
[2022-11-30 13:28] LABS: Barbiturates Screen,Urine Negative ng/ml (<200); Benzodiazepines Screen,Urine Negative ng/ml (<200)
[2022-11-30 13:29] LABS: Amphetamine/Metha Screen,Urine Negative ng/ml (<1000); Methadone Screen,Urine Negative ng/ml (<300)
[2022-11-30 13:30] LABS: Cannabinoid Screen,Urine Positive ng/ml (<50)
[2022-11-30 13:31] LABS: Cocaine Screen,Urine Negative ng/ml (<300); Opiate Screen,Urine Negative ng/ml (<300)
[2022-11-30 13:32] LABS: Phencyclidine Screen,Urine Negative ng/ml (<25)
[2022-11-30 13:40] LABS: Alanine Aminotransferase 38 U/L (12-78); Albumin Level 4.8 g/dl (3.5-5.0); Albumin/Globulin Ratio 1.5 (1.1-1.8); Alkaline Phosphatase 98 U/L (38-126); Anion Gap 16.2 mEq/L (5-15); Aspartate Amino Transferase 36 U/L (14-36); Bilirubin,Total 0.3 mg/dl (0.2-1.3); Blood Urea Nitrogen 7 mg/dl (7-17); Calcium 9.2 mg/dl (8.4-10.2); Carbon Dioxide 26 mmol/L (22.0-30.0); Chloride 102 mmol/L (98-107); Chol/HDL Ratio 2.2 (1-3.5); Cholesterol 211 mg/dl (140-200); Estimated Glomerular Filt Rate 82 ml/min (>60); GFR (African American) 99 ML/MIN (>60); Globulin 3.1 g/dL (1.3-3.2); Glucose 92 mg/dl (74-100); HDL Cholesterol 98 mg/dl (40-60); Potassium 4.2 mmoL/L (3.5-5.1); Sodium 140 mmol/L (136-145); Total Protein,Serum 7.9 g/dl (6.3-8.2); Triglycerides 80 mg/dl (30-150); VLDL Cholesterol 16 mg/dL (0-40)
[2022-11-30 13:52] LABS: Direct LDL Cholesterol 78.24 mg/dL (100-129)
[2022-11-30 13:59] LABS: 25-OH Vitamin D, Total 30.3 ng/mL (30-100)
[2022-11-30 14:13] LABS: Thyroid Stimulating Hormone 1.69 uIU/mL (0.465-4.68)
== END ==
PROVIDERS: PCP Nurse Practitioner Family; Visit Provider Nurse Practitioner Family
DX: R53.83 Other fatigue (principal); E66.9 Obesity, unspecified; Z68.34 Body mass index [BMI] 34.0-34.9, adult; Z79.899 Other long term (current) drug therapy
CPT/HCPCS: 80053; 80061; 80305; 82306; 84443; 85025

== ENCOUNTER 2023-06-10 09:19 | Emergency (ER) | payer OTHER, SELFPAY ==
[2023-06-10 09:50] VITALS: BP 112/51; PULSE 69; RESP 20; TEMP 37.7; O2SAT 100; BMI 28.1
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
[2023-06-10 10:05] LABS: UTC Strep Screen (Rapid) Positive (Negative)
[2023-06-10 10:06] LABS: UTC Influenza A Antigen Negative (Negative); UTC Influenza B Antigen Negative (Negative)
[2023-06-10 10:20] VITALS: BP 112/51; PULSE 69; RESP 20; TEMP 37.7; O2SAT 100
== END 2023-06-10 10:25 | disposition home or self-care (01) ==
PROVIDERS: Emergency Provider Nurse Practitioner Family
DX: J02.0 Streptococcal pharyngitis (principal); R07.0 Pain in throat; R53.81 Other malaise; R50.9 Fever, unspecified; R05.9 Cough, unspecified; F17.210 Nicotine dependence, cigarettes, uncomplicated
CPT/HCPCS: 87804; 87880; 99212; 99214; G0463

== ENCOUNTER 2023-12-11 18:09 | Emergency (ER) | payer OTHER, SELFPAY ==
[2023-12-11 18:15] VITALS: BP 110/53; PULSE 55; RESP 20; TEMP 36.9; O2SAT 99; BMI 28.0
--- NOTE | 2023-12-11 18:37 | EXP.UTC ---
Discharge Plan Disposition Patient Disposition: Home, Self-Care Condition: Good Prescriptions Prescriptions: No Action [id number] [Bromfed DM] 2-30-10 mg/5 mL syrup 5 ml PO Q6H PRN (Reason: cold symptoms) Qty: 180 0RF topiramate [Topamax] 25 mg tablet 25 mg PO BID 30 Days Qty: 60 2RF Referrals Follow up/Referrals: Adriana Giordano PA [Primary Care Provider] - See instructions Activity Restrictions/Add. Instructions Additional Instructions/Restrictions: Do not put anything in your ear. If you get ear wax impaction in your ear then use Mineral 1-2 drops twice a day for 4 days then take a warm shower and allow warm water to run into ears. Clinical Impressions Clinical Impression: Foreign body in left ear, initial encounter Discharge ED Provider: Angela Kaur [facility] [place] HPI General Stated complaint: Qtip in LT ear Time Seen by Provider: 12/11/23 18:37 History of Present Illness Provider Complaint: Pt reports that she was cleaning out her ears with Q-tip and then end came off in her ear. Related Data Previous Rx's Medication Instructions Recorded [id number] 5 ml PO Q6H PRN cold symptoms #180 07/02/23 2 mg-30 mg-10 mg/5 mL oral syrup mL (Bromfed DM) topiramate 25 mg tablet (Topamax) 25 mg PO BID 30 days #60 tabs 11/06/23 Allergies Allergy/AdvReac Type Severity Reaction Status Date / Time No Known Allergies Allergy Verified 07/02/23 14:09 [facility] Disclaimer: The information contained in this section may have been updated after the patient was seen, as this information can be updated by other users. 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 caffeine: No ROS Obtained: Yes All systems reviewed & no additional complaints except as documented Constitutional Constitutional: Reports system reviewed and no additional complaints, except as documented Eyes Eyes: Reports system reviewed and no additional complaints, except as documented ENT Ears, Nose, Mouth, and Throat: Reports system reviewed and no additional complaints, except as documented and Reports otalgia Cardiovascular Cardiovascular: Reports system reviewed and no additional complaints, except as documented Respiratory Respiratory: Reports system reviewed and no additional complaints, except as documented Gastrointestinal Gastrointestingal: Reports system reviewed and no additional complaints, except as documented Genitourinary Female Genitourinary: Reports system reviewed and no additional complaints, except as documented Musculoskeletal Musculoskeletal: Reports system reviewed and no additional complaints, except as documented Integumentary/Breasts Skin/Breast: Reports system reviewed and no additional complaints, except as documented Neurologic Neurologic: Reports system reviewed and no additional complaints, except as documented Endocrine Endocrine: Reports system reviewed and no additional complaints, except as documented Hematologic/Lymphatic Henatologic/Lymphatic: Reports system reviewed and no additional complaints, except as documented Allergic/Immunologic Allergic/Immunologic: Reports system reviewed and no additional complaints, except as documented Physical Exam General General appearance: alert and in no apparent distress Head Head exam: atraumatic and normocephalic Eye Eye exam: Present normal appearance Expanded ENT Exam External ear exam: Present normal external inspection TM/Canal exam: Left TM: foreign body (end of Q-tip) Nasal speculum exam: Bilateral: normal Mouth exam: Present normal external inspection Teeth exam: Present normal inspection Throat exam: Present normal inspection Neck Neck exam: Present normal inspection; Absent lymphadenopathy Chest Chest inspection: Present normal inspection and symmetric chest wall rise Respiratory Respiratory exam: Present normal lung sounds bilaterally Cardiovascular Cardiovascular exam: Present regular rate, normal rhythm and normal heart sounds Abdominal Exam Abdominal exam: Present soft and normal bowel sounds Extremities Exam Extremities exam: Present normal inspection Back Exam Back exam: Present normal inspection Neurological Exam Neurological exam: Present alert and oriented X3 Psychiatric Psychiatric exam: Present normal affect and normal mood Skin Skin exam: Present warm, dry and intact Lymphatic Lymphatic Findings: no adenopathy Medical Decision Making Cassius Inquiry Pt receiving controlled substance: No Cassius was queried for this patient: No
[2023-12-11 18:40] VITALS: BP 110/53; PULSE 55; RESP 20; TEMP 36.9; O2SAT 99
== END 2023-12-11 18:42 | disposition home or self-care (01) ==
PROVIDERS: Emergency Provider Nurse Practitioner Family; PCP Physician Assistant
DX: T16.2XXA Foreign body in left ear, initial encounter (principal); F17.210 Nicotine dependence, cigarettes, uncomplicated; W44.F9XA Other object of natural or organic material, entering into or through a natural orifice, initial encounter
CPT/HCPCS: 99212; 99213; G0463

== ENCOUNTER 2024-03-24 11:28 | Outpatient (CLI) | payer OTHER, SELFPAY ==
[2024-03-24 18:02] LABS: Coronavirus 19, PCR Not Detected (NotDetected); Influenza A, PCR Not Detected (NotDetected); Influenza B, PCR Not Detected (NotDetected)
[2024-03-24 19:22] LABS: Basophils # 0.1 K/mm3 (0-0.2); Basophils % 0.6 % (0.1-2.0); Eosinophils # 0.1 K/mm3 (0.0-0.4); Eosinophils % 1.5 % (0.1-12.0); Hematocrit 50.9 % (37.0-47.0); Hemoglobin 15.4 g/dL (12.2-16.2); Lymphocytes # 1.7 K/mm3 (0.7-4.5); Lymphocytes % 23.2 % (10-50); Mean Corpuscular HGB Conc 30.2 g/dL (31.8-35.4); Mean Corpuscular Hemoglobin 29.2 pg (27.0-31.2); Mean Corpuscular Volume 96.6 fl (81-99); Mean Platelet Volume 11.5 fl (7.4-10.4); Monocytes # 0.3 K/mm3 (0.1-1.0); Monocytes % 4.3 % (1.7-9.3); Neutrophils # 5.1 K/mm3 (1.8-7.8); Neutrophils % 70.4 % (37.0-80.0); Platelet Count 208 K/mm3 (142-424); Red Blood Count 5.27 M/mm3 (4.20-5.40); Red Cell Distribution Width 14.1 % (11.5-17.5); White Blood Count 7.3 K/mm3 (4.8-10.8)
[2024-03-24 19:25] LABS: Alanine Aminotransferase 16 U/L (12-78); Albumin Level 4.4 g/dl (3.5-5.0); Albumin/Globulin Ratio 1.5 (1.1-1.8); Alkaline Phosphatase 63 U/L (38-126); Anion Gap 7.5 mEq/L (5-15); Aspartate Amino Transferase 29 U/L (14-36); Bilirubin,Total 0.6 mg/dl (0.2-1.3); Blood Urea Nitrogen 5 mg/dl (7-17); Calcium 9.4 mg/dl (8.4-10.2); Carbon Dioxide 26 mmol/L (22.0-30.0); Chloride 107 mmol/L (98-107); Chol/HDL Ratio 2.1 (1-3.5); Cholesterol 180 mg/dl (140-200); Estimated Glomerular Filt Rate 95 ml/min (>60); GFR (African American) 115 ML/MIN (>60); Globulin 2.9 g/dL (1.3-3.2); Glucose 72 mg/dl (74-100); HDL Cholesterol 85 mg/dl (40-60); Potassium 4.5 mmoL/L (3.5-5.1); Sodium 136 mmol/L (136-145); Total Protein,Serum 7.3 g/dl (6.3-8.2); Triglycerides 48 mg/dl (30-150); VLDL Cholesterol 10 mg/dL (0-40)
[2024-03-24 19:35] LABS: Direct LDL Cholesterol 74.08 mg/dL (100-129)
[2024-03-24 19:57] LABS: Thyroid Stimulating Hormone 1.87 uIU/mL (0.465-4.68)
== END 2024-03-24 23:59 | disposition home or self-care (01) ==
LOC: LAB.DROPOF 03-25 11:29
PROVIDERS: PCP Family Medicine; Visit Provider Family Medicine
DX: Z00.00 Encounter for general adult medical examination without abnormal findings (principal); R09.81 Nasal congestion; R69 Illness, unspecified; B34.9 Viral infection, unspecified
CPT/HCPCS: 80050; 80053; 80061; 84443; 85025; 87636

== ENCOUNTER 2024-04-13 21:07 | Emergency (ER) | payer OTHER, SELFPAY ==
[2024-04-13 21:17] VITALS: BP 134/86; PULSE 94; RESP 20; TEMP 36.5; O2SAT 100; BMI 29.8
--- NOTE | 2024-04-13 21:22 | HMH.EDGENADL ---
Discharge Plan Disposition Patient Disposition: Eloped Condition: Good Chief Complaint: Psychiatric Symptoms Prescriptions Prescriptions: No Action topiramate [Topamax] 25 mg tablet 25 mg PO BID 30 Days Qty: 60 2RF fluticasone propionate [Flonase Allergy Relief] 50 mcg/actuation spray,suspension 1 spray intranasal DAILY PRN (Reason: allergy symptoms) Qty: 16 0RF Rx Instructions: administer into each nostril loratadine [Allergy Relief (loratadine)] 10 mg tablet 10 mg PO DAILY PRN (Reason: allergic symptoms) Qty: 30 0RF methylprednisolone [Medrol (Kg)] 4 mg tablets,dose pack See Rx Instructions PO PER PKG DIR Qty: 21 0RF Rx Instructions: PO PER PKG DIR azithromycin [Zithromax Z-Kg] 250 mg tablet See Rx Instructions PO .COMPLEX Qty: 6 0RF Rx Instructions: For 250 mg dose pack: take 500 mg today (day 1), then 250 mg for 4 days (days 2-5) PO Referrals Follow up/Referrals: Sol Arreola APRN [Primary Care Provider] - See instructions Clinical Impressions Clinical Impression: Eloped from emergency department Print Language Print Language: Barbadian Discharge ED Provider: Daron Schaffer General Adult HPI <SIMONE Mcdonald - Last Filed: 04/13/24 22:28> General Chief complaint: Psychiatric Symptoms Stated complaint: recheck,AMS Time Seen by Provider: 04/13/24 21:16 Mode of Arrival: EMS Source of Information: Patient Limitations: No Limitations Description of Symptoms (Recalled from ER Triage Doc. by RN): Pt reports to ED to assessed for pysch. Pt states smoking weed approx an hour ago. History of Present Illness HPI narrative: Patient presents for nebulous symptoms and will not be really forthcoming however she states that she like to go to [facility] because she needs help. She denies suicidal homicidal ideations. She denies audiovisual hallucinations. Patient states that she smoked marijuana and got paranoid. She apparently walked up to an EMS crew and asked them to bring her to the hospital. She denies chest pain fever chills hemoptysis hematochezia melena nausea vomiting diarrhea. Related Data Previous Rx's ?Medication ?Instructions ?Recorded fluticasone propionate 50 1 spray intranasal DAILY PRN 03/24/24 mcg/actuation nasal allergy symptoms #16 grams spray,suspension (Flonase Allergy Relief) loratadine 10 mg tablet (Allergy 10 mg PO DAILY PRN allergic 03/24/24 Relief (loratadine)) symptoms #30 tabs topiramate 25 mg tablet (Topamax) 25 mg PO BID 30 days #60 tabs 03/24/24 azithromycin 250 mg tablet See Rx Instructions PO .COMPLEX #6 03/26/24 (Zithromax Z-Kg) tabs methylprednisolone 4 mg tablets in See Rx Instructions PO PER PKG DIR 03/26/24 a dose pack (Medrol (Kg)) #21 tabs Allergies Allergy/AdvReac Type Severity Reaction Status Date / Time No Known Allergies Allergy Verified 03/24/24 10:35 [facility] <SIMONE Mcdonald - Last Filed: 04/13/24 22:28> [facility] Disclaimer: The information contained in this section may have been updated after the patient was seen, as this information can be updated by other users. 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 caffeine: No Other Medical History Have you received the Flu Vaccine for this season: No Have you received the Pneumonia Vaccine: No <SIMONE Mcdonald - Last Filed: 04/13/24 22:28> ROS Obtained: Yes Systems reviewed as appropriate & no additional complaints except as documented Physical Exam <SIMONE Mcdonald Last Filed: 04/13/24 22:28> General General appearance: alert and in no apparent distress Respiratory Respiratory exam: Present normal lung sounds bilaterally Cardiovascular Cardiovascular exam: Present regular rate Neurological Exam Neurological exam: Present alert and oriented X3 Medical Decision Making <SIMONE Mcdonald Last Filed: 04/13/24 22:28> Medical Records Medical records reviewed: Yes I reviewed the patient's medical records. Screening: Per USPSTF and CDC recommendations, given the prevalence of disease in our region, it is our hospital?s policy to screen for HIV and viral Hepatitis for all patients aged 18 and over and those with ongoing risk factors. Cassius Inquiry Pt receiving controlled substance: No Vital Signs: 04/13/24 21:17 04/13/24 22:23 Temperature 97.7 F 98.2 F Temperature Source Oral Tympanic Pulse Rate 66 Pulse Rate [Left Radial] 94 H Respiratory Rate 20 16 Blood Pressure 138/74 Blood Pressure [Right Arm] 134/86 Blood Pressure Mean [Right Arm] 102 Blood Pressure Source [Right Arm] Automatic Cuff 02 Sat by Pulse Oximetry 100 Oxygen Delivery Method Room Air Lab Data Lab results reviewed: Yes I reviewed the patient's lab results. Orders (Tests/Meds): ORDERS Category Date Time Status Acetaminophen Stat Lab 04/13/24 21:17 Ordered Complete Blood Count Auto Diff Stat Lab 04/13/24 21:17 Ordered Comprehensive Metabolic Panel Stat Lab 04/13/24 21:17 Ordered Drug Screen,Urine Stat Lab 04/13/24 21:17 Ordered Ethyl Alcohol Stat Lab 04/13/24 21:17 Ordered Salicylate Stat Lab 04/13/24 21:17 Ordered T4 (Thyroxine) Stat Lab 04/13/24 21:17 Ordered Thyroid Stimulating Hormone Stat Lab 04/13/24 21:17 Ordered Urine , HCG Qual. Stat Lab 04/13/24 21:17 Ordered Medical Decision Narrative: In summary patient is a 38-year-old female who presents to the emergency department for evaluation of psychiatric complaint. Patient is hemodynamically stable upon arrival, afebrile. Physical exam is nonfocal and unremarkable as patient is awake alert cooperative [place] Coma Score is 15. Differential diagnosis includes drug intoxication versus psychiatric instability. Initial workup will be conducted with urine drug screen acetaminophen level aspirin level urine drug screen alcohol CMP CBC. Initial interventions were considered however patient has other than psychiatric issues and not anxiety are deferred for now. Initial workup ordered however patient eloped after my evaluation. <Daron Schafefr MD - Last Filed: 04/13/24 23:11> Vital Signs: 04/13/24 21:17 04/13/24 22:23 Temperature 97.7 F 98.2 F Temperature Source Oral Tympanic Pulse Rate 66 Pulse Rate [Left Radial] 94 H Respiratory Rate 20 16 Blood Pressure 138/74 Blood Pressure [Right Arm] 134/86 Blood Pressure Mean [Right Arm] 102 Blood Pressure Source [Right Arm] Automatic Cuff 02 Sat by Pulse Oximetry 100 Oxygen Delivery Method Room Air Orders (Tests/Meds): ORDERS Category Date Time Status Acetaminophen Stat Lab 04/13/24 21:17 Ordered Complete Blood Count Auto Diff Stat Lab 04/13/24 21:17 Ordered Comprehensive Metabolic Panel Stat Lab 04/13/24 21:17 Ordered Drug Screen,Urine Stat Lab 04/13/24 21:17 Ordered Ethyl Alcohol Stat Lab 04/13/24 21:17 Ordered Salicylate Stat Lab 04/13/24 21:17 Ordered T4 (Thyroxine) Stat Lab 04/13/24 21:17 Ordered Thyroid Stimulating Hormone Stat Lab 04/13/24 21:17 Ordered Urine , HCG Qual. Stat Lab 04/13/24 21:17 Ordered Medical Decision Narrative: In summary patient is a 38-year-old female who presents to the emergency department for evaluation of psychiatric complaint. Patient is hemodynamically stable upon arrival, afebrile. Physical exam is nonfocal and unremarkable as patient is awake alert cooperative [place] Coma Score is 15. Differential diagnosis includes drug intoxication versus psychiatric instability. Initial workup will be conducted with urine drug screen acetaminophen level aspirin level urine drug screen alcohol CMP CBC. Initial interventions were considered however patient has other than psychiatric issues and not anxiety are deferred for now. Initial workup ordered however patient eloped after my evaluation. I was consulted by the CARLOS, and we discussed the complexity of the problems being addressed. I approved the treatment and management plan for this patient's care in the Emergency Department, thus performing a substantive portion of the medical decision making. Daron Schaffer MD Critical Care <SIMONE Mcdonald - Last Filed: 04/13/24 22:28> Critical Care Time Critical Care Time: No
--- NOTE | 2024-04-13 22:19 | PC.NURSE ---
Pt refused to sign AMA paperwork. Pt left with her mother.
[2024-04-13 22:23] VITALS: BP 138/74; PULSE 66; RESP 16; TEMP 36.8; O2SAT 98
== END 2024-04-13 22:25 | disposition left against medical advice (07) ==
PROVIDERS: Emergency Provider Emergency Medicine; PCP Family Medicine
DX: Z53.1 Procedure and treatment not carried out because of patient's decision for reasons of belief and group pressure (principal); R41.82 Altered mental status, unspecified; F60.0 Paranoid personality disorder; F12.10 Cannabis abuse, uncomplicated
CPT/HCPCS: 93005; 99282